=== PATIENT | female | born 1985 | race Caucasian/White ===

== ENCOUNTER 2021-10-28 06:34 | Inpatient (IN) | payer OTHER ==
[~2021-10-28] VITALS: Ht 154.9 cm; Wt 56.7 kg
== END 2021-10-29 18:42 | disposition home or self-care (01) | DRG 743 ==
LOC: O/R 06:34 → OB/GYN 06:34 → SURH 12:36 → OB/GYN 18:50
PROVIDERS: ADMIT Obstetrics & Gynecology Gynecology; ATTEND Obstetrics & Gynecology Gynecology
PROC: 0UT64ZZ Resection of Left Fallopian Tube, Percutaneous Endoscopic Approach (ICD-10-PCS; 2021-10-28)
PROC: 0UT94ZZ Resection of Uterus, Percutaneous Endoscopic Approach (ICD-10-PCS; principal; 2021-10-28 12:15)
DX: N80.0 Endometriosis of uterus (principal); N72 Inflammatory disease of cervix uteri; Z20.822 Contact with and (suspected) exposure to COVID-19